=== PATIENT | male | born 1955 | race Caucasian/White ===

== ENCOUNTER → 2016-09-07 | Outpatient (REF) | payer BC | LOC: M LAB REF 12:33 | PROVIDERS: ATTEND Nurse Practitioner Adult Health | DX: E83.52 Hypercalcemia (principal) ==

== ENCOUNTER → 2016-12-07 | Outpatient (REF) | payer BC | LOC: M LAB REF 17:04 | PROVIDERS: ATTEND Nurse Practitioner Adult Health | DX: E83.52 Hypercalcemia (principal) ==

== ENCOUNTER → 2017-02-18 | Outpatient (CLI) | payer BC ==
--- NOTE | 2017-02-18 14:38 | REP ---
Clinical: Pain. Technique: AP, lateral, bilateral oblique views right foot. Findings: The osseous structures and joint spaces are intact and normal. There is no evidence for acute fracture or dislocation. Surrounding soft tissues are unremarkable. Vascular calcifications are appreciated. No subcutaneous emphysema or radiodense foreign body. Impression: Age appropriate right foot radiographs. Signed by Isaias Bustos MD 02/18/2017 02:30 P
== END ==
LOC: M RAD 14:14
PROVIDERS: ATTEND Nurse Practitioner Adult Health
DX: M79.671 Pain in right foot (principal)

== ENCOUNTER → 2017-03-30 | Outpatient (REF) | payer BC | LOC: M LAB REF 12:13 | PROVIDERS: ATTEND Nurse Practitioner Adult Health | DX: Z11.59 Encounter for screening for other viral diseases (principal) ==

== ENCOUNTER → 2017-06-10 | Outpatient (CLI) | payer BC ==
[~2017-06-10] MED LIST: PROHANCE 279.3MG/ML 15ML VIAL (A9576) As Ordered; PROHANCE 279.3MG/ML 5ML VIAL (A9576) As Ordered
== END ==
LOC: M RAD 10:16
DX: I70.213 Atherosclerosis of native arteries of extremities with intermittent claudication, bilateral legs (principal)
CPT/HCPCS: A9576

== ENCOUNTER → 2017-10-11 | Outpatient (CLI) | payer BC | LOC: M LAB 17:30 | DX: N50.811 Right testicular pain (principal) | CPT/HCPCS: 36415 ==

== ENCOUNTER → 2017-12-19 | Outpatient (CLI) | payer BC ==
[2017-12-19 10:21] LABS: CREATININE FOR GFR 1.09 MG/DL (0.70-1.30); GLOMERULAR FILTRATION RATE > 60.0 (>49)
[2017-12-19 10:21] LABS: BLOOD UREA NITROGEN 28 MG/DL (7-18)
== END ==
LOC: M LAB 09:28
DX: H90.A22 Sensorineural hearing loss, unilateral, left ear, with restricted hearing on the contralateral side (principal)
CPT/HCPCS: 82565

== ENCOUNTER → 2017-12-23 | Outpatient (CLI) | payer BC | LOC: M RAD 14:56 | DX: H90.A22 Sensorineural hearing loss, unilateral, left ear, with restricted hearing on the contralateral side (principal); G93.0 Cerebral cysts | CPT/HCPCS: A9576 ==

== ENCOUNTER → 2018-01-12 | Outpatient (REF) | payer BC ==
[2018-01-12 19:08] LABS: RHEUMATOID FACTOR QUANT < 10.0 IU/ML (<15.0)
[2018-01-15 00:06] LABS: ANTINUCLEAR ANTIBODIES DIRECT Negative (Negative); Lyme Disease IgG/IgM Antibodie <0.91 ISR (0.00-0.90); Lyme Disease IgM Ab Quantitati <0.80 index (0.00-0.79)
[2018-01-18 15:25] LABS: ACETYLCHOLINE RCPTOR BLOCK AB 13 % (0-25)
[2018-01-18 15:25] LABS: ACETYLCHOLINE RCPTOR BINDING A < 0.03 nmol/L (0.00-0.24)
== END ==
LOC: M LAB REF 17:36
DX: M79.1 Myalgia (principal)
CPT/HCPCS: 86038

== ENCOUNTER 2018-02-11 02:30 | Emergency (ER) | payer BC ==
[2018-02-11 03:06] LABS: BASO % 0.5 % (0.0-1.0); EOS # 0.1 10^3/uL (0.0-0.50); EOS % 2.3 % (0.0-3.0); HEMATOCRIT 34.6 % (42.0-52.0); HEMOGLOBIN 11.7 g/dl (13.5-17.5); IMMATURE GRANULOCYTE % 0.2 % (0-3.0); LYMPH # 1.7 10^3/uL (1.5-4.5); LYMPH % 30.2 % (24.0-44.0); MEAN CORPUSCULAR HEMOGLOBIN 29.2 pg (27.0-33.0); MEAN CORPUSCULAR HGB CONC 33.8 g/dl (32.0-36.5); MEAN CORPUSCULAR VOLUME 86.3 fl (80.0-96.0); MONO # 0.4 10^3/uL (0.0-0.8); MONO % 7.8 % (0.0-5.0); NEUTROPHILS # 3.3 10^3/uL (1.8-7.7); PLATELET COUNT, AUTOMATED 252 10^3/uL (150-450); RED BLOOD COUNT 4.01 10^6/uL (4.30-6.10); RED CELL DISTRIBUTION WIDTH 12.5 % (11.5-14.5); WHITE BLOOD COUNT 5.6 10^3/uL (4.0-10.0)
[2018-02-11 03:27] LABS: ANION GAP 10 MEQ/L (8-16); BLOOD UREA NITROGEN 22 MG/DL (7-18); CALCIUM LEVEL 9.1 MG/DL (8.8-10.2); CARBON DIOXIDE LEVEL 25 MEQ/L (21-32); CHLORIDE LEVEL 105 MEQ/L (98-107); CK-MB VALUE MASS 1.8 NG/ML (<3.6); CPK CREATINE PHOSPHOKINASE 50 U/L (39-308); CREATININE FOR GFR 1.14 MG/DL (0.70-1.30); GLOMERULAR FILTRATION RATE > 60.0 (>49); GLUCOSE, FASTING 362 MG/DL (70-100); POTASSIUM SERUM 4.6 MEQ/L (3.5-5.1); SODIUM LEVEL 140 MEQ/L (136-145); TROPONIN I < 0.02 NG/ML (< 0.10)
[2018-02-11] MEDS: ASPIRIN 81 MG CHEW TABLET PO (03:49)
[2018-02-11] MEDS: NITROGLYCERIN 0.4 MG SUBL TABLET SL ×2 (03:50→04:55)
[2018-02-11 04:38] LABS: ESTIMATED AVERAGE GLUCOSE 223 MG/DL (60-110); HEMOGLOBIN A1c 9.4 %
[2018-02-11] MEDS ORDERED: ISOVUE-370 76% 100ML VIAL (Q9967) As Ordered (05:11)
[2018-02-11] MEDS: GI COCKTAIL 50ML BTL(HYOSCYAMINE/MAALOX/LIDOCAINE VISCOUS)(1:3:1) PO (07:32)
[2018-02-11 09:54] LABS: ALBUMIN 3.9 GM/DL (3.2-5.2); ALBUMIN/GLOBULIN RATIO 1.26 (1.00-1.93); ALKALINE PHOSPHATASE 49 U/L (45-117); ALT/SGPT 21 U/L (12-78); AST/SGOT 18 U/L (7-37); BILIRUBIN,DIRECT < 0.1 MG/DL (0.0-0.2); BILIRUBIN,TOTAL 0.4 MG/DL (0.2-1.0); CK-MB VALUE MASS 1.5 NG/ML (<3.6); CPK CREATINE PHOSPHOKINASE 67 U/L (39-308); LIPASE 430 U/L (73-393); MB/CK RELATIVE INDEX 2.23 (< OR =4); TROPONIN I < 0.02 NG/ML (< 0.10)
== END 2018-02-11 10:50 | disposition home or self-care (01) ==
LOC: M ED 02:30
DX: R07.89 Other chest pain (principal); I45.10 Unspecified right bundle-branch block; I44.0 Atrioventricular block, first degree; K76.0 Fatty (change of) liver, not elsewhere classified; R91.1 Solitary pulmonary nodule; Z79.82 Long term (current) use of aspirin; Z79.4 Long term (current) use of insulin; Z79.899 Other long term (current) drug therapy
CPT/HCPCS: Q9967

== ENCOUNTER → 2018-02-27 | Outpatient (CLI) | payer BC | LOC: M RAD 07:57 | DX: K31.84 Gastroparesis (principal) | CPT/HCPCS: 78264 ==

== ENCOUNTER 2018-04-07 13:24 | Day surgery (SDC) | payer BC ==
[2018-04-07 14:33] LABS: BEDSIDE GLUCOSE 138 MG/DL (80-115)
[2018-04-07] MEDS: NS 1,000 ML IV (14:36)
[2018-04-07] MEDS ORDERED: PROPOFOL 200 MG/20 ML VIAL As Ordered (14:49)
[2018-04-07] MEDS ORDERED: LIDOCAINE 2% INJ 100 MG/5 ML SDV (FOR ANES.) As Ordered (15:20)
== END 2018-04-07 16:08 | disposition home or self-care (01) ==
LOC: M OPP 13:24
DX: K44.9 Diaphragmatic hernia without obstruction or gangrene (principal); R13.10 Dysphagia, unspecified; R10.13 Epigastric pain; K31.84 Gastroparesis; E10.8 Type 1 diabetes mellitus with unspecified complications; R01.1 Cardiac murmur, unspecified; I10 Essential (primary) hypertension; E78.00 Pure hypercholesterolemia, unspecified; M12.9 Arthropathy, unspecified; F41.9 Anxiety disorder, unspecified; Z79.4 Long term (current) use of insulin; Z79.82 Long term (current) use of aspirin; Z79.891 Long term (current) use of opiate analgesic; Z79.899 Other long term (current) drug therapy; J30.2 Other seasonal allergic rhinitis; Z90.89 Acquired absence of other organs
CPT/HCPCS: 43239

== ENCOUNTER → 2018-09-05 | Outpatient (CLI) | payer BC ==
[~2018-09-05] MED LIST changes: +ALPH600C PO; +ASPI81TA85 PO; +CALC-196 PO; +CIAL20TA PO; +CLAR10CA3 PO; +CLAR1TAB2 PO; +DICL100T6 PO; +E-Z-GAS II EFFERVESCENT PACKET (SODIUM BICARB./CITRIC ACID/SIMETHICONE) As Ordered ONE; +E-Z-HD 98% w/w 340GM SUSP BTL As Ordered ONE; +E-Z-PAQUE 96% w/w SUSP 176GM BTL As Ordered ONE; +GLYB5TA PO; +LEVE1INJ5 SC; +LISI10TA4 PO; +MECL-68 PO; +MECL-86 PO; +METF10004 PO; +MULTLIQ7 PO; +NEXI40CA PO; +NITR4TASL SL; +NU-M1TAB PO; +OMEP40CA2 PO; +PIOG1TAB37; +PREG50CA PO; -PROHANCE 279.3MG/ML 15ML VIAL (A9576) As Ordered; -PROHANCE 279.3MG/ML 5ML VIAL (A9576) As Ordered; +SERT-155 PO; +SIMV40TA2 PO; +TRAM50TA2 PO; +VICT18IN SC; +VITA10006 PO; +VITA500046 PO; +VITALIQ PO; +VITATAB11 PO; +VITMTA PO
--- NOTE | 2018-09-05 17:36 | REP ---
Esophagram The procedure was performed under the direct supervision of Dr. Campoverde. The images were reviewed with Dr. Campoverde. A single view PA chest x-ray is submitted as a press bucker film. The superior mediastinal structures are midline. The heart size is within normal limits. The lungs are clear. Liquid barium and gas producing granules were given in the erect position as well as liquid barium in the prone oblique positions in order to perform a double contrast esophagram examination. The oral and pharyngeal stages of deglutition are unremarkable. There are esophageal transport there are tertiary waves demonstrated. There is no esophagitis, stricture or mucosal ring. There is a sliding type hiatal hernia. There is gastroesophageal reflux demonstrated to below the level of the rasheed. Impression: 1. Tertiary waves. 2. There is a sliding type hiatal hernia. There is gastroesophageal reflux demonstrated to below the level of the rasheed. 0.8 minutes of fluoro time was utilized for this procedure. Reviewed by JOSE Fowler 09/05/2018 04:42 P Electronically Signed by Pedro Campoverde MD 09/05/2018 05:28 P
== END ==
LOC: M RAD 08:22
PROVIDERS: ATTEND Physician Assistant Medical
DX: R13.10 Dysphagia, unspecified (principal); K44.9 Diaphragmatic hernia without obstruction or gangrene; K21.9 Gastro-esophageal reflux disease without esophagitis

== ENCOUNTER 2018-09-14 08:01 | Day surgery (SDC) | payer BC ==
[~2018-09-14] VITALS: Ht 180.3 cm; Wt 100.9 kg
[~2018-09-14 08:01] MED LIST changes: -E-Z-GAS II EFFERVESCENT PACKET (SODIUM BICARB./CITRIC ACID/SIMETHICONE) As Ordered ONE; -E-Z-HD 98% w/w 340GM SUSP BTL As Ordered ONE; -E-Z-PAQUE 96% w/w SUSP 176GM BTL As Ordered ONE; +LIDOCAINE 2% INJ 100 MG/5 ML SDV (FOR ANES.) As Ordered ONE; +PROPOFOL 200 MG/20 ML VIAL As Ordered ONE
[2018-09-14] MEDS: NS 1,000 ML IV ONE (08:12)
--- NOTE | 2018-09-14 09:17 | ROOR ---
Patient Name: Eldon Caban Procedure Date: 09/14/2018 8:51 AM Date of : 1955 Age: 63 Room: [facility] Gender: Male Note Status: Finalized Procedure: Colonoscopy Indications: Screening patient at increased risk: Family history of 1st-degree relative with colorectal cancer at age 60 years (or older) Providers: mAol DUTTA MD Referring MD: Christie Pappas NP Requesting Provider: Medicines: Monitored Anesthesia Care Complications: No immediate complications. Procedure: Pre-Anesthesia Assessment: - The heart rate, respiratory rate, oxygen saturations, blood pressure, adequacy of pulmonary ventilation, and response to care were monitored throughout the procedure. The Colonoscope was introduced through the anus and advanced to the cecum, identified by appendiceal orifice and ileocecal valve. The colonoscopy was performed without difficulty. The patient tolerated the procedure well. The quality of the bowel preparation was good. Findings: The perianal and digital rectal examinations were normal. Three sessile polyps were found in the sigmoid colon. The polyps were diminutive in size. These polyps were removed with a cold snare. Resection and retrieval were complete. Mild sigmoid diverticulosis and small internal hemorrhoids. The exam was otherwise without abnormality on direct and retroflexion views. Impression: - Three diminutive polyps in the sigmoid colon, removed with a cold snare. Resected and retrieved. - Mild sigmoid diverticulosis and small internal hemorrhoids. - The examination was otherwise normal on direct and retroflexion views. Recommendation: - Repeat colonoscopy in 3 years for surveillance. - Return to referring physician as previously scheduled. Amol Dutta MD Amol DUTTA MD 09/14/2018 9:16:54 AM Electronically signed by Amol DUTTA MD Number of Addenda: 0 Note Initiated On: 09/14/2018 8:51 AM Estimated Blood Loss: Estimated blood loss: none.
[2018-09-14 09:36] VITALS: BP 187/80
== END 2018-09-14 09:42 | disposition home or self-care (01) ==
LOC: M OPP 08:01
PROVIDERS: ATTEND Internal Medicine Gastroenterology
DX: D12.5 Benign neoplasm of sigmoid colon (principal); K57.30 Diverticulosis of large intestine without perforation or abscess without bleeding; K64.8 Other hemorrhoids; Z12.11 Encounter for screening for malignant neoplasm of colon; Z80.0 Family history of malignant neoplasm of digestive organs

== ENCOUNTER → 2018-10-09 | Outpatient (CLI) | payer BC ==
[~2018-10-09] MED LIST changes: -LIDOCAINE 2% INJ 100 MG/5 ML SDV (FOR ANES.) As Ordered ONE; -PROPOFOL 200 MG/20 ML VIAL As Ordered ONE
[2018-10-09 15:57] LABS: BASO % 0.4 % (0.0-1.0); EOS # 0.1 10^3/uL (0.0-0.50); EOS % 0.9 % (0.0-3.0); HEMATOCRIT 37.1 % (42.0-52.0); HEMOGLOBIN 12.6 g/dl (13.5-17.5); LYMPH # 1.8 10^3/uL (1.5-4.5); MEAN CORPUSCULAR HEMOGLOBIN 29.4 pg (27.0-33.0); MEAN CORPUSCULAR VOLUME 86.5 fl (80.0-96.0); MONO # 0.5 10^3/uL (0.0-0.8); MONO % 6.4 % (0.0-5.0); NEUTROPHILS # 5.3 10^3/uL (1.8-7.7); PLATELET COUNT, AUTOMATED 205 10^3/uL (150-450); RED BLOOD COUNT 4.29 10^6/uL (4.30-6.10); WHITE BLOOD COUNT 7.7 10^3/uL (4.0-10.0)
[2018-10-09 16:15] LABS: HEMOGLOBIN A1c 9.8 %
[2018-10-09 16:21] LABS: ERYTHROCYTE SEDIMENTATION RATE 7 mm/hr (0-20)
[2018-10-09 16:34] LABS: ALBUMIN 4.5 GM/DL (3.2-5.2); ALT/SGPT 20 U/L (12-78); BILIRUBIN,TOTAL 0.5 MG/DL (0.2-1.0); BLOOD UREA NITROGEN 36 MG/DL (7-18); CALCIUM LEVEL 9.3 MG/DL (8.8-10.2); CARBON DIOXIDE LEVEL 27 MEQ/L (21-32); CHLORIDE LEVEL 103 MEQ/L (98-107); CREATININE FOR GFR 1.93 MG/DL (0.70-1.30); GLOMERULAR FILTRATION RATE 37.4 (>49); GLUCOSE, FASTING 200 MG/DL (70-100); POTASSIUM SERUM 4.8 MEQ/L (3.5-5.1); RHEUMATOID FACTOR QUANT < 10.0 IU/ML (<15.0); SODIUM LEVEL 139 MEQ/L (136-145)
[2018-10-09 16:35] LABS: FOLATE > 24.0 NG/ML (>5.4); VITAMIN B12 LEVEL > 2000 PG/ML (247-911)
[2018-10-10 10:58] LABS: ALBUMIN 4.68 GM/DL (3.29-5.55); ALBUMIN % 66.8 % (55.8-66.1); ALPHA-1-GLOBULIN % 3.7 % (2.9-4.9); ALPHA-1-GLOBULINS 0.26 GM/DL (0.17-0.41); BETA-1-GLOBULINS % 7.2 % (4.7-7.2); BETA-2-GLOBULINS 0.29 GM/DL (0.19-0.55); BETA-2-GLOBULINS % 4.1 % (3.2-6.5); GAMMA GLOBULIN % 8.2 % (11.1-18.8); GAMMA GLOBULINS 0.57 GM/DL (0.65-1.58)
[2018-10-13 00:06] LABS: ANCA-ATYPICAL <1:20 titer (Neg:<1:20); ANTINUCLEAR ANTIBODIES DIRECT Negative (Negative); CYTOPLASMIC NEUTROP AB ANCA-C <1:20 titer (Neg:<1:20); PERINUCLEAR AB ANCA-P <1:20 titer (Neg:<1:20); SJOGREN'S ANTI SS-A <0.2 AI (0.0-0.9); SJOGREN'S ANTI SS-B <0.2 AI (0.0-0.9)
== END ==
LOC: M LAB 14:57
PROVIDERS: ATTEND Psychiatry & Neurology Neurology
DX: R51 Headache (principal); R41.82 Altered mental status, unspecified; R42 Dizziness and giddiness

== ENCOUNTER → 2019-06-27 | Outpatient (CLI) | payer BC ==
[~2019-06-27] MED LIST changes: -MECL-68 PO; +MECL1TAB31 PO; -OMEP40CA2 PO; +OMEP40CA97 PO; -SERT-155 PO; +SERT50TA29 PO; -SIMV40TA2 PO; +SIMV40TA20 PO
--- NOTE | 2019-06-28 01:04 | REP ---
Clinical: Flank pain. Technique: Single supine view of the abdomen and pelvis. Findings: No obvious organomegaly. Phleboliths and vascular calcifications noted in the pelvis. No definite urinary tract calcification identified. Bowel gas pattern is nonspecific. Skeletal structures demonstrate age-related degenerative changes. Impression: Nonspecific examination. No definite urinary tract calcifications. Electronically Signed by Isaias Bustos MD 06/28/2019 12:55 A
== END ==
LOC: M RAD 14:57
PROVIDERS: ATTEND Urology
DX: R10.9 Unspecified abdominal pain (principal)

== ENCOUNTER → 2019-06-27 | Outpatient (REF) | payer BC ==
[2019-06-27 17:00] LABS: APPEARANCE, URINE HAZY (CLEAR); BACTERIA, URINE AUTO 1+ (NEGATIVE); BILIRUBIN, URINE AUTO NEGATIVE (NEGATIVE); BLOOD, URINE BLOOD NEGATIVE (NEGATIVE); COLOR, URINE AMBER (YELLOW); GLUCOSE, URINE (UA) AUTO 3+ mg/dL (NEGATIVE); KETONE, URINE AUTO TRACE mg/dL (NEGATIVE); LEUKOCYTE ESTERASE, URINE AUTO NEGATIVE (NEGATIVE); MUCUS, URINE SMALL (NEGATIVE); NITRITE, URINE AUTO NEGATIVE (NEGATIVE); PROTEIN, URINE AUTO 3+ mg/dL (NEGATIVE); RBC, URINE AUTO 2 /HPF (0-3); SPECIFIC GRAVITY URINE AUTO 1.025 (1.002-1.035); SQUAMOUS EPITHELIAL CELL UR AU 0 /HPF (0-6); UROBILINOGEN, URINE AUTO 0.2 mg/dL (0.0-2.0); WBC, URINE AUTO 2 /HPF (0-3)
== END ==
LOC: M SMT 16:31
PROVIDERS: ATTEND Urology
DX: R10.9 Unspecified abdominal pain (principal)

== ENCOUNTER → 2019-06-28 | Outpatient (CLI) | payer BC ==
--- NOTE | 2019-06-29 04:15 | REP ---
Clinical: Left flank pain. Technique: Axial noncontrast images from the lung bases to the pubic symphysis with coronal and sagittal re-formations. Comparison: 02/17/2018. Findings: Kidneys demonstrate mild symmetric and likely chronic perinephric stranding without hydroureteronephrosis or nephroureterolithiasis. 2.1 cm right renal hypodensity consistent with cyst is unchanged. Mild hepatomegaly and fatty infiltration to the liver suggested. Spleen, pancreas, gallbladder, and bilateral adrenal glands are normal for noncontrast evaluation. The enteric system is without obstruction or acute inflammatory process. Normal terminal ileum and appendix identified in the right lower quadrant. Pelvis demonstrates normal bladder and age appropriate prostate/seminal vesicles. Small fat containing inguinal hernias (right greater than left) noted. No ascites. No free air. No adenopathy. Abdominal aorta without aneurysm. Osseous structures demonstrate age-related degenerative changes without focal abnormality. Impression: 1. 2.1 cm right renal hypodensity compatible with cyst remains stable. No further acute urinary tract pathology appreciated. 2. Scattered diverticula without acute diverticulitis. 3. Mild hepatomegaly and hepatic steatosis. Electronically Signed by Isaias Bustos MD 06/29/2019 04:06 A
== END ==
LOC: M RAD 15:15
PROVIDERS: ATTEND Nurse Practitioner Family
DX: R10.9 Unspecified abdominal pain (principal); K76.0 Fatty (change of) liver, not elsewhere classified; R16.0 Hepatomegaly, not elsewhere classified

== ENCOUNTER 2019-07-13 20:07 | Emergency (ER) | payer BC ==
[~2019-07-13] VITALS: Ht 180.3 cm; Wt 104.5 kg
[2019-07-13 23:27] LABS: BASO % 0.4 % (0.0-1.0); EOS # 0.2 10^3/uL (0.0-0.5); EOS % 1.9 % (0.0-3.0); HEMOGLOBIN 12.5 g/dl (13.5-17.5); LYMPH # 2.5 10^3/uL (1.5-5.0); LYMPH % 32.2 % (24.0-44.0); MEAN CORPUSCULAR HEMOGLOBIN 27.9 pg (27.0-33.0); MEAN CORPUSCULAR HGB CONC 32.9 g/dl (32.0-36.5); MEAN CORPUSCULAR VOLUME 84.8 fl (80.0-96.0); MONO # 0.6 10^3/uL (0.0-0.8); MONO % 7.1 % (0.0-5.0); NEUTROPHILS # 4.6 10^3/uL (1.5-8.5); NEUTROPHILS % 58.1 % (36.0-66.0); PLATELET COUNT, AUTOMATED 261 10^3/uL (150-450); RED BLOOD COUNT 4.48 10^6/uL (4.30-6.10); WHITE BLOOD COUNT 7.9 10^3/uL (4.0-10.0)
[2019-07-13 23:57] LABS: BLOOD UREA NITROGEN 22 MG/DL (7-18); CALCIUM LEVEL 9.1 MG/DL (8.8-10.2); CARBON DIOXIDE LEVEL 26 MEQ/L (21-32); CHLORIDE LEVEL 110 MEQ/L (98-107); CREATININE FOR GFR 1.01 MG/DL (0.70-1.30); GLOMERULAR FILTRATION RATE > 60.0 (>49); GLUCOSE, FASTING 135 MG/DL (70-100); POTASSIUM SERUM 4.3 MEQ/L (3.5-5.1); SODIUM LEVEL 143 MEQ/L (136-145)
[2019-07-14] MEDS: GASTROGRAFIN SOLUTION 30ML PO SCH ×2 (00:45→01:18)
--- NOTE | 2019-07-14 03:05 | REPVR ---
PROCEDURE INFORMATION: Exam: CT Abdomen And Pelvis With Contrast Exam date and time: 07/14/2019 12:15 AM Age: 64 years old Clinical indication: Abdominal pain; Generalized; Additional info: Diverticulitis TECHNIQUE: Imaging protocol: Computed tomography of the abdomen and pelvis with intravenous contrast. Radiation optimization: All CT scans at this facility use at least one of these dose optimization techniques: automated exposure control; mA and/or kV adjustment per patient size (includes targeted exams where dose is matched to clinical indication); or iterative reconstruction. Contrast material: ISO; Contrast volume: 100 ml; Contrast route: AC; Other contrast: Route: Oral, Material: ggraphin, Volume: 600; COMPARISON: CT ABD PELVIS W/O CONTRAST 06/28/2019 3:35 PM FINDINGS: Liver: There is hepatomegaly and hepatic steatosis. 9 mm flush filling nodule in the left lobe adjacent to the falciform ligament, likely a small hemangioma. Gallbladder and bile ducts: Normal. No calcified stones. No ductal dilation. Pancreas: Normal. No ductal dilation. Spleen: Mild splenomegaly. Adrenals: Normal. No mass. Kidneys and ureters: Small cyst in the right kidney. Kidneys are otherwise unremarkable. No hydronephrosis. Stomach and bowel: There is mild colonic diverticulosis without evidence of diverticulitis. The small bowel is unremarkable. Appendix: No evidence of appendicitis. Intraperitoneal space: Unremarkable. No free air. No significant fluid collection. Vasculature: Unremarkable. No abdominal aortic aneurysm. Lymph nodes: Unremarkable. No enlarged lymph nodes. Bladder: Unremarkable as visualized. Reproductive: Unremarkable as visualized. Bones/joints: There are advanced degenerative changes in the spine and pelvis. Soft tissues: Unremarkable. IMPRESSION: 1. Hepatic steatosis and mild hepatomegaly. Mild splenomegaly. 2. Colonic diverticulosis without evidence of diverticulitis. 3. No acute findings. Electronically signed by: Giuliano Gutierres On 07/14/2019 03:06:39 AM
[2019-07-14] MEDS ORDERED: REGL5TAB2 PO (03:13)
[2019-07-14 03:15] VITALS: BP 140/67
== END 2019-07-14 03:28 | disposition home or self-care (01) ==
LOC: M ED 20:07
DX: K31.84 Gastroparesis (principal); E11.9 Type 2 diabetes mellitus without complications; R16.2 Hepatomegaly with splenomegaly, not elsewhere classified; K76.0 Fatty (change of) liver, not elsewhere classified; K57.30 Diverticulosis of large intestine without perforation or abscess without bleeding; I10 Essential (primary) hypertension; E78.5 Hyperlipidemia, unspecified; K21.9 Gastro-esophageal reflux disease without esophagitis; F41.9 Anxiety disorder, unspecified; Z79.02 Long term (current) use of antithrombotics/antiplatelets; Z79.4 Long term (current) use of insulin; Z79.891 Long term (current) use of opiate analgesic; Z79.899 Other long term (current) drug therapy
CPT/HCPCS: 36415; 74177; 80048; 85025; 99284; Q9963

== ENCOUNTER → 2019-07-31 | Outpatient (CLI) | payer BC ==
[~2019-07-31] MED LIST changes: +REGL5TAB2 PO
== END ==
LOC: M LAB 10:07
PROVIDERS: ATTEND Nurse Practitioner Family
DX: Z12.5 Encounter for screening for malignant neoplasm of prostate (principal)
CPT/HCPCS: 36415; G0103

== ENCOUNTER → 2019-11-06 | Outpatient (REF) | payer BC ==
[2019-11-06 20:11] LABS: MAU/CREAT RATIO 280.1 MCG/MG (0.0-30.0)
== END ==
LOC: M LAB REF 15:01
PROVIDERS: ATTEND Nurse Practitioner Family
DX: E11.65 Type 2 diabetes mellitus with hyperglycemia (principal)

== ENCOUNTER → 2020-05-19 | Outpatient (CLI) | payer SELFPAY ==
[~2020-05-19] MED LIST changes: -ASPI81TA85 PO; +ASPI81TA86 PO
== END ==
LOC: M LABSMTC 14:02
PROVIDERS: ATTEND Pediatrics
DX: Z20.828 Contact with and (suspected) exposure to other viral communicable diseases (principal)

== ENCOUNTER → 2021-06-09 | Outpatient (REF) | payer BC ==
[~2021-06-09] MED LIST changes: -GLYB5TA PO; +GLYB5TAB6 PO; +LISI10TA22 PO; -LISI10TA4 PO; +OMEP40CA4 PO; -OMEP40CA97 PO
[2021-06-09 18:27] LABS: MAU/CREAT RATIO 828.1 MCG/MG (0.0-30.0)
== END ==
LOC: M LAB REF 16:55
PROVIDERS: ATTEND Nurse Practitioner Family
DX: E11.65 Type 2 diabetes mellitus with hyperglycemia (principal)

== ENCOUNTER → 2021-08-26 | Outpatient (CLI) | payer BC | LOC: M LAB 11:31 | PROVIDERS: ATTEND Urology | DX: R97.20 Elevated prostate specific antigen [PSA] (principal) ==

== ENCOUNTER 2021-11-25 09:43 | Emergency (ER) | payer BC ==
[~2021-11-25] VITALS: Ht 180.3 cm; Wt 105.0 kg
[2021-11-25] MEDS ORDERED: AMOX875T (09:53)
[2021-11-25] MEDS ORDERED: HUMA50IN4 (09:53)
[2021-11-25 11:53] LABS: BASO % 0.4 % (0.0-1.0); EOS # 0.1 10^3/uL (0.0-0.5); EOS % 1.5 % (0.0-3.0); HEMATOCRIT 37.5 % (42.0-52.0); HEMOGLOBIN 12.3 g/dl (13.5-17.5); LYMPH # 2.3 10^3/uL (1.5-5.0); LYMPH % 30.7 % (24.0-44.0); MEAN CORPUSCULAR HEMOGLOBIN 28.1 pg (27.0-33.0); MEAN CORPUSCULAR HGB CONC 32.8 g/dl (32.0-36.5); MEAN CORPUSCULAR VOLUME 85.8 fl (80.0-96.0); MONO # 0.6 10^3/uL (0.0-0.8); MONO % 8.6 % (2.0-8.0); NEUTROPHILS # 4.4 10^3/uL (1.5-8.5); NEUTROPHILS % 58.7 % (36.0-66.0); PLATELET COUNT, AUTOMATED 255 10^3/uL (150-450); RED BLOOD COUNT 4.37 10^6/uL (4.30-6.10); WHITE BLOOD COUNT 7.4 10^3/uL (4.0-10.0)
[2021-11-25 12:05] LABS: INR 0.98; PROTHROMBIN TIME 13.4 SECONDS (12.7-14.5)
[2021-11-25 12:06] LABS: PARTIAL THROMBOPLASTIN TIME 28.6 SECONDS (25.9-37.0)
[2021-11-25 12:24] LABS: BLOOD UREA NITROGEN 22 MG/DL (7-18); CARBON DIOXIDE LEVEL 28 MEQ/L (21-32); CHLORIDE LEVEL 107 MEQ/L (98-107); CREATININE FOR GFR 1.25 MG/DL (0.70-1.30); GLOMERULAR FILTRATION RATE > 60.0 (>49); GLUCOSE, FASTING 62 MG/DL (70-100); SODIUM LEVEL 140 MEQ/L (136-145)
[2021-11-25] MEDS ORDERED: VALA1TAB5 PO (15:46)
[2021-11-25] MEDS ORDERED: PRED20TA PO (15:46)
[2021-11-25] MEDS ORDERED: BACIOIN23 OP (17:00)
[2021-11-25 17:07] VITALS: BP 158/68
== END 2021-11-25 17:32 | disposition home or self-care (01) ==
LOC: M ED 09:43
DX: G51.0 Bell's palsy (principal); I44.0 Atrioventricular block, first degree; I10 Essential (primary) hypertension; E78.5 Hyperlipidemia, unspecified; E11.9 Type 2 diabetes mellitus without complications; H81.4 Vertigo of central origin; Z79.4 Long term (current) use of insulin; Z79.811 Long term (current) use of aromatase inhibitors

== ENCOUNTER → 2022-02-02 | Outpatient (REF) | payer BC ==
[~2022-02-02] MED LIST changes: +AMOX875T; +BACIOIN23 OP; +HUMA50IN4; +PRED20TA PO; +VALA1TAB5 PO
== END ==
LOC: M LAB REF 16:09
PROVIDERS: ATTEND Nurse Practitioner Adult Health
DX: G51.0 Bell's palsy (principal)

== ENCOUNTER → 2022-04-08 | Outpatient (CLI) | payer BC | LOC: M WUC 10:53 | PROVIDERS: ATTEND Nurse Practitioner Adult Health | DX: R05.9 Cough, unspecified (principal) ==

== ENCOUNTER → 2022-06-01 | Outpatient (CLI) | payer BC | LOC: M RAD 11:06 | PROVIDERS: ATTEND Orthopaedic Surgery | DX: M54.50 Low back pain, unspecified (principal) ==

== ENCOUNTER → 2022-06-30 | Outpatient (CLI) | payer BC | LOC: M RAD 11:55 | PROVIDERS: ATTEND Internal Medicine | DX: N50.811 Right testicular pain (principal) ==

== ENCOUNTER 2022-07-07 20:27 | Inpatient (IN) | payer BC, MEDICARE ==
[~2022-07-07] VITALS: Ht 180.3 cm; Wt 129.9 kg
[2022-07-07] MEDS ORDERED: VIT1CAPS22 PO (20:48)
[2022-07-07] MEDS ORDERED: MECL-109 PO (20:48)
[2022-07-07] MEDS ORDERED: RA N1TAB PO (20:48)
[2022-07-07] MEDS ORDERED: BACTDSTA PO (20:48)
[2022-07-07 22:51] LABS: BASO # 0.1 10^3/uL (0.0-0.2); BASO % 0.5 % (0.0-1.0); EOS # 0.1 10^3/uL (0.0-0.5); EOS % 1.1 % (0.0-3.0); HEMOGLOBIN 12.7 g/dl (13.5-17.5); LYMPH # 2.4 10^3/uL (1.5-5.0); LYMPH % 25.2 % (24.0-44.0); MEAN CORPUSCULAR HEMOGLOBIN 28.1 pg (27.0-33.0); MEAN CORPUSCULAR HGB CONC 32.6 g/dl (32.0-36.5); MEAN CORPUSCULAR VOLUME 86.3 fl (80.0-96.0); MONO # 0.6 10^3/uL (0.0-0.8); MONO % 6.7 % (2.0-8.0); NEUTROPHILS # 6.2 10^3/uL (1.5-8.5); NEUTROPHILS % 66.3 % (36.0-66.0); PLATELET COUNT, AUTOMATED 305 10^3/uL (150-450); RED BLOOD COUNT 4.52 10^6/uL (4.30-6.10); WHITE BLOOD COUNT 9.4 10^3/uL (4.0-10.0)
[2022-07-07 23:02] LABS: INR 0.97; PROTHROMBIN TIME 13.1 SECONDS (12.5-14.5)
[2022-07-07 23:09] LABS: ALBUMIN 4.2 G/DL (3.2-5.2); BILIRUBIN,DIRECT 0.1 MG/DL (<0.4); BILIRUBIN,TOTAL 0.4 MG/DL (0.3-1.2); CALCIUM LEVEL 9.7 MG/DL (8.3-10.6); CREATININE FOR GFR 2.27 MG/DL (0.70-1.30); GLOMERULAR FILTRATION RATE 30.6 (>49); POTASSIUM SERUM 5.1 MMOL/L (3.5-5.1); TOTAL PROTEIN 6.8 G/DL (5.7-8.2)
[2022-07-07] MEDS ORDERED: MORPHINE 4 MG/ML 1ML VIAL IV ONE (23:40)
[2022-07-07] MEDS ORDERED: ONDANSETRON 4MG 2ML VIAL IV ONE (23:40)
[2022-07-07] MEDS ORDERED: NS 1,000 ML IV ONE (23:40)
[2022-07-08] MEDS ORDERED: ISOVUE-370 76% 100ML VIAL As Ordered ONE (00:01)
[2022-07-08] MEDS ORDERED: NS 1,000 ML IV ONE (02:05)
[2022-07-08 04:43] LABS: RSV AMPLIFICATION NEGATIVE (NEGATIVE)
[2022-07-08] MEDS ORDERED: MORPHINE 2 MG/ML 1ML VIAL IV ONE (04:45)
[2022-07-08] MEDS ORDERED: DEXTROSE 50% 50ML SYRINGE IV PRN (05:00)
[2022-07-08] MEDS ORDERED: GLUCAGON INJ 1MG VIAL SC PRN (05:00)
[2022-07-08] MEDS ORDERED: NS 1,000 ML IV SCH (05:00)
[2022-07-08] MEDS ORDERED: GLUCOSE 4GM CHEW TABLET PO PRN (05:00)
[2022-07-08] MEDS ORDERED: ACETAMINOPHEN TAB 650MG DOSE (2X325MG) PO PRN (05:00)
[2022-07-08] MEDS ORDERED: ONDANSETRON 4MG 2ML VIAL IV PRN (05:10)
[2022-07-08] MEDS: HEPARIN SOD (PORCINE) 5000UNITS/ML 1ML VIAL/SYRINGE SC SCH ×3 (05:35→21:16)
[2022-07-08] MEDS ORDERED: OCUVTAB4 PO (06:18)
[2022-07-08] MEDS ORDERED: LORA-930 PO (06:18)
[2022-07-08] MEDS ORDERED: ASCO500T PO (06:18)
[2022-07-08] MEDS ORDERED: VITATAB73 PO (06:18)
[2022-07-08] MEDS ORDERED: CAL-TAB2 PO (06:18)
[2022-07-08] MEDS ORDERED: BACT800T5 PO (06:18)
[2022-07-08] MEDS ORDERED: MAGN400T35 PO (06:18)
[2022-07-08] MEDS ORDERED: VITA500038 PO (06:18)
[2022-07-08] MEDS ORDERED: NITR4TASL SL (06:18)
[2022-07-08] MEDS ORDERED: MECL-86 PO (06:18)
[2022-07-08] MEDS ORDERED: HUMA50IN4 SC ×3 (06:18)
[2022-07-08] MEDS ORDERED: HOME MED LIST COMPLETE! XX SCH (06:20)
[2022-07-08] MEDS: INSULIN LISPRO (NovoLOG) PER UNIT SC SCH ×3 (07:30→18:24)
[2022-07-08 09:55] LABS: MAGNESIUM LEVEL 1.7 MG/DL (1.8-2.4)
[2022-07-08] MEDS ORDERED: MAG SULF 1GM/100ML (MAG RUN) 1 GM in IV 1 EA IV ONE (11:00)
[2022-07-08 11:13] LABS: CALCIUM LEVEL 8.4 MG/DL (8.3-10.6); CREATININE FOR GFR 2.03 MG/DL (0.70-1.30); GLOMERULAR FILTRATION RATE 34.8 (>49); PHOSPHORUS LEVEL 3.3 MG/DL (2.4-5.1); POTASSIUM SERUM 4.8 MMOL/L (3.5-5.1)
[2022-07-08 11:28] LABS: HEMOGLOBIN A1c 8.3 % (4.0-6.0)
[2022-07-08] MEDS ORDERED: LORATADINE 10 MG TAB PO PRN (12:40)
[2022-07-08 12:42] LABS: APPEARANCE, URINE MANUAL CLEAR (CLEAR); BILIRUBIN, URINE MANUAL NEGATIVE (NEGATIVE); BLOOD URINE MANUAL NEGATIVE (NEGATIVE); COLOR, URINE MANUAL YELLOW (YELLOW); GLUCOSE, URINE (UA) MANUAL 2+(250 MG/DL) mg/dL (NEGATIVE); KETONE, URINE MANUAL 1+ mg/dL (NEGATIVE); LEUKOCYTE ESTERASE, URINE MAN NEGATIVE (NEGATIVE); NITRITE, URINE MANUAL NEGATIVE (NEGATIVE); PROTEIN, URINE MANUAL 1+ mg/dL (NEGATIVE); SPECIFIC GRAVITY,URINE MANUAL 1.015 (1.002-1.035); UROBILINOGEN, URINE MANUAL NORMAL (NORMAL)
[2022-07-08 13:00] LABS: BACTERIA, URINE SMALL AMOUNT; HYALINE CAST, URINE NONE SEEN /lpf (0-1); MUCUS, URINE SMALL AMOUNT (NEGATIVE); RBC, URINE 0-1 /hpf (0-3); SQUAMOUS EPITHELIAL CELL URINE SMALL AMOUNT /hpf (SMALL AMT); WBC, URINE 0-1 /hpf (0-3)
[2022-07-08 13:09] LABS: CREATININE,RANDOM URINE 81.4 MG/DL
[2022-07-08] MEDS: OMEPRAZOLE 20MG CAP PO SCH ×2 (13:11→21:16)
[2022-07-08] MEDS: MECLIZINE 25 MG TABLET PO SCH (13:11)
[2022-07-08] MEDS: ASCORBIC ACID 500 MG TAB PO SCH (13:18)
[2022-07-08] MEDS: MAGNESIUM OXIDE 400MG TAB (MAG-OX) PO SCH (13:19)
[2022-07-08] MEDS ORDERED: INSULIN LISPRO (NovoLOG) PER UNIT SC SCH (21:00)
[2022-07-08] MEDS ORDERED: SERTRALINE HCL 50 MG TAB PO SCH (21:00)
[2022-07-08] MEDS ORDERED: LEVEMIR (INSULIN DETEMIR) 1 UNITS/0.01ML SC SCH (21:00)
[2022-07-08] MEDS ORDERED: SIMVASTATIN 40 MG TAB PO SCH (21:00)
[2022-07-09] MEDS: HEPARIN SOD (PORCINE) 5000UNITS/ML 1ML VIAL/SYRINGE SC SCH ×2 (05:24→13:42)
[2022-07-09 05:48] LABS: HEMOGLOBIN 10.8 g/dl (13.5-17.5); MEAN CORPUSCULAR HEMOGLOBIN 28.4 pg (27.0-33.0); MEAN CORPUSCULAR HGB CONC 32.7 g/dl (32.0-36.5); MEAN CORPUSCULAR VOLUME 86.8 fl (80.0-96.0); PLATELET COUNT, AUTOMATED 236 10^3/uL (150-450); WHITE BLOOD COUNT 5.4 10^3/uL (4.0-10.0)
[2022-07-09 06:07] LABS: MAGNESIUM LEVEL 1.9 MG/DL (1.8-2.4)
[2022-07-09 06:09] LABS: CALCIUM LEVEL 9.5 MG/DL (8.3-10.6); CREATININE FOR GFR 1.63 MG/DL (0.70-1.30); GLOMERULAR FILTRATION RATE 44.9 (>49)
[2022-07-09 06:36] VITALS: BP 146/90
[2022-07-09] MEDS ORDERED: PREVNAR-20 VACCINE 0.5ML SYRINGE IM.IMMUN ONE (09:00)
[2022-07-09] MEDS: ASCORBIC ACID 500 MG TAB PO SCH (09:36)
[2022-07-09] MEDS: OMEPRAZOLE 20MG CAP PO SCH (09:37)
[2022-07-09] MEDS: MAGNESIUM OXIDE 400MG TAB (MAG-OX) PO SCH (09:37)
[2022-07-09] MEDS: MECLIZINE 25 MG TABLET PO SCH (09:37)
[2022-07-09] MEDS: INSULIN LISPRO (NovoLOG) PER UNIT SC SCH ×2 (09:38→13:42)
[2022-07-09 09:42] VITALS: BP 137/79
[2022-07-09] MEDS ORDERED: AMLO25TA PO (10:48)
[2022-07-09] MEDS ORDERED: AMLO1TAB25 PO (11:43)
[2022-07-09] MEDS ORDERED: REGL5TAB2 PO (11:48)
[2022-07-09 14:00] VITALS: BP 167/81
[2022-07-09] MEDS ORDERED: LEVEMIR (INSULIN DETEMIR) 1 UNITS/0.01ML SC SCH (21:00)
== END 2022-07-09 17:45 | disposition home or self-care (01) | DRG 469 ==
LOC: M ED 20:27 → M ED INP 07-08 05:31 → M MS5PR 07-08 20:55
PROVIDERS: ADMIT Family Medicine; ATTEND Family Medicine
DX: N17.9 Acute kidney failure, unspecified (principal); E11.22 Type 2 diabetes mellitus with diabetic chronic kidney disease; E11.42 Type 2 diabetes mellitus with diabetic polyneuropathy; E87.5 Hyperkalemia; K21.9 Gastro-esophageal reflux disease without esophagitis; I12.9 Hypertensive chronic kidney disease with stage 1 through stage 4 chronic kidney disease, or unspecified chronic kidney disease; E78.5 Hyperlipidemia, unspecified; F32.A Depression, unspecified; N50.82 Scrotal pain; F41.9 Anxiety disorder, unspecified; Z20.822 Contact with and (suspected) exposure to COVID-19; Z90.49 Acquired absence of other specified parts of digestive tract; Z79.4 Long term (current) use of insulin; Z79.84 Long term (current) use of oral hypoglycemic drugs; Z79.899 Other long term (current) drug therapy; N18.30 Chronic kidney disease, stage 3 unspecified

== ENCOUNTER → 2022-08-30 | Outpatient (CLI) | payer BC, MEDICARE ==
[~2022-08-30] MED LIST changes: +AMLO1TAB25 PO; +AMLO25TA PO; +ASCO500T PO; +BACT800T5 PO; +BACTDSTA PO; +CAL-TAB2 PO; +HUMA50IN4 SC; +INSU100I6 SC; -LEVE1INJ5 SC; +LORA-930 PO; +MAGN400T35 PO; +MECL-109 PO; +OCUVTAB4 PO; +RA N1TAB PO; +VIT1CAPS22 PO; +VITA500038 PO; +VITATAB73 PO
== END ==
LOC: M LAB 11:34
PROVIDERS: ATTEND Urology
DX: R97.20 Elevated prostate specific antigen [PSA] (principal)

== ENCOUNTER → 2022-09-20 | Outpatient (CLI) | payer BC, MEDICARE ==
[2022-09-20 13:52] LABS: HEMOGLOBIN A1c 7.9 % (4.0-6.0)
== END ==
LOC: M PLALAB 11:58
PROVIDERS: ATTEND Nurse Practitioner Family
DX: E11.65 Type 2 diabetes mellitus with hyperglycemia (principal)

== ENCOUNTER → 2022-09-20 | Outpatient (REF) | payer BC, MEDICARE ==
[2022-09-20 18:20] LABS: CREATININE, URINE 48.4 MG/DL
== END ==
LOC: M LAB REF 17:05
PROVIDERS: ATTEND Nurse Practitioner Family
DX: E11.65 Type 2 diabetes mellitus with hyperglycemia (principal)

== ENCOUNTER → 2023-10-13 | Outpatient (CLI) | payer BC, MEDICARE ==
[~2023-10-13] MED LIST changes: -MECL-109 PO; +MECL-209 PO; -MECL1TAB31 PO; +[UNRECOGNIZED DRUG - CODE] PO
== END ==
LOC: M LAB 11:15
PROVIDERS: ATTEND Urology
DX: Z12.5 Encounter for screening for malignant neoplasm of prostate (principal)
CPT/HCPCS: 36415; G0103

== ENCOUNTER → 2023-11-11 | Outpatient (REF) | payer BC, MEDICARE ==
[2023-11-11 18:37] LABS: PERCENT SATURATION 14.8 % (19.7-50.0)
[2023-11-11 18:41] LABS: FERRITIN 9.8 NG/ML (10.5-307.3)
[2023-11-15 09:08] LABS: LDL DIRECT 66 mg/dL (0-99)
== END ==
LOC: M LAB REF 17:00
PROVIDERS: ATTEND Internal Medicine
DX: D50.9 Iron deficiency anemia, unspecified (principal); E78.5 Hyperlipidemia, unspecified

== ENCOUNTER → 2023-11-18 | Outpatient (CLI) | payer BC, MEDICARE | LOC: M RAD 13:36 | PROVIDERS: ATTEND Internal Medicine | DX: M54.59 Other low back pain (principal) ==

== ENCOUNTER → 2023-12-22 | Outpatient (CLI) | payer BC, MEDICARE | LOC: M RAD 11:44 | PROVIDERS: ATTEND Internal Medicine | DX: I73.9 Peripheral vascular disease, unspecified (principal) ==

== ENCOUNTER 2024-03-22 07:59 | Day surgery (SDC) | payer BC, MEDICARE ==
[~2024-03-22] VITALS: Ht 180.3 cm; Wt 103.6 kg
[~2024-03-22 07:59] MED LIST changes: +ECOT81TA5 PO; +GNP45TAB2 PO; +INSU100I48 SQ; +JARD1TAB3 PO; +LISI40TA4 PO; +NS 250 ML IV ONE; +OMEP40CA5 PO; +THERTAB52 PO
[2024-03-22] MEDS ORDERED: GLUCOSE 4 GM CHEW PO PRN (08:20)
[2024-03-22] MEDS ORDERED: GLUCAGON INJ 1MG VIAL SC PRN (08:20)
[2024-03-22] MEDS ORDERED: DEXTROSE 50% 50ML SYRINGE IV PRN (08:20)
[2024-03-22] MEDS: INSULIN LISPRO (NovoLOG) PER UNIT SC PRN (08:28)
[2024-03-22 10:45] VITALS: TEMP 98.8
[2024-03-22 11:06] VITALS: BP 135/63; O2SAT 93
== END 2024-03-22 11:05 | disposition home or self-care (01) ==
LOC: M OPP 07:59
PROVIDERS: ATTEND Internal Medicine Gastroenterology
DX: Z12.11 Encounter for screening for malignant neoplasm of colon (principal); D12.2 Benign neoplasm of ascending colon; K51.40 Inflammatory polyps of colon without complications; K57.30 Diverticulosis of large intestine without perforation or abscess without bleeding; K64.8 Other hemorrhoids; Z86.0100 Personal history of colon polyps, unspecified; Z87.19 Personal history of other diseases of the digestive system; E11.40 Type 2 diabetes mellitus with diabetic neuropathy, unspecified; I10 Essential (primary) hypertension; E78.00 Pure hypercholesterolemia, unspecified; Z79.899 Other long term (current) drug therapy; Z79.82 Long term (current) use of aspirin; Z79.4 Long term (current) use of insulin; Z79.84 Long term (current) use of oral hypoglycemic drugs; Z90.89 Acquired absence of other organs; Z80.0 Family history of malignant neoplasm of digestive organs
CPT/HCPCS: 45385; 88305; J1815

== ENCOUNTER 2024-07-31 15:37 | Emergency (ER) | payer BC, MEDICARE ==
[~2024-07-31] VITALS: Ht 180.3 cm; Wt 106.0 kg
[~2024-07-31 15:37] MED LIST changes: -NS 250 ML IV ONE
[2024-07-31 17:11] LABS: BASO % 0.3 % (0.0-1.0); HEMATOCRIT 46.1 % (42.0-52.0); LYMPH % 6.6 % (24.0-44.0); MEAN CORPUSCULAR HEMOGLOBIN 28.6 pg (27.0-33.0); MEAN CORPUSCULAR HGB CONC 32.5 g/dl (32.0-36.5); MONO # 0.8 10^3/uL (0.0-0.8); MONO % 5.5 % (2.0-8.0); NEUTROPHILS # 13.2 10^3/uL (1.5-8.5); NEUTROPHILS % 87.1 % (36.0-66.0); RED BLOOD COUNT 5.24 10^6/uL (4.30-6.10); WHITE BLOOD COUNT 15.2 10^3/uL (4.0-10.0)
[2024-07-31 17:34] LABS: ALBUMIN 4.6 G/DL (3.2-5.2); BILIRUBIN,DIRECT 0.3 MG/DL (<0.4); BILIRUBIN,TOTAL 1.1 MG/DL (0.3-1.2); CALCIUM LEVEL 10.1 MG/DL (8.3-10.6); CREATININE FOR GFR 1.31 MG/DL (0.70-1.30); GLOMERULAR FILTRATION RATE 57.4 (>42); POTASSIUM SERUM 4.3 MMOL/L (3.5-5.1); TOTAL PROTEIN 7.8 G/DL (5.7-8.2)
[2024-07-31 20:28] VITALS: BP 191/104; TEMP 97.6; O2SAT 95
== END 2024-07-31 21:57 | disposition left against medical advice (07) ==
LOC: M ED 15:37
DX: Z53.21 Procedure and treatment not carried out due to patient leaving prior to being seen by health care provider (principal)

== ENCOUNTER → 2025-02-08 | Outpatient (CLI) | payer MEDICARE ==
[~2025-02-08] MED LIST changes: -ALPH600C PO; +ALPH600C2 PO; +LISI40TA10 PO; -LISI40TA4 PO; -PREG50CA PO; +PREG50CA87 PO
[2025-02-08 13:25] LABS: PLATELET COUNT, AUTOMATED 242 10^3/uL (150-450)
[2025-02-08 13:28] LABS: APPEARANCE, URINE CLEAR (CLEAR); BACTERIA, URINE AUTO NEGATIVE (NEGATIVE); BILIRUBIN, URINE AUTO NEGATIVE (NEGATIVE); BLOOD, URINE BLOOD NEGATIVE (NEGATIVE); GLUCOSE, URINE (UA) AUTO 3+ mg/dL (NEGATIVE); KETONE, URINE AUTO NEGATIVE (NEGATIVE); LEUKOCYTE ESTERASE, URINE AUTO NEGATIVE (NEGATIVE); MUCUS, URINE SMALL (NEGATIVE); NITRITE, URINE AUTO NEGATIVE (NEGATIVE); PROTEIN, URINE AUTO 2+ mg/dL (NEGATIVE); RBC, URINE AUTO 0 /HPF (0-3); SPECIFIC GRAVITY URINE AUTO 1.016 (1.002-1.035); SQUAMOUS EPITHELIAL CELL UR AU 0 /HPF (0-6); UROBILINOGEN, URINE AUTO 0.2 mg/dL (0.0-2.0); WBC, URINE AUTO 0 /HPF (0-3)
[2025-02-08 14:02] LABS: CALCIUM LEVEL 10.0 MG/DL (8.3-10.6); CARBON DIOXIDE LEVEL 28.0 MMOL/L (20-31); CHLORIDE LEVEL 106.0 MMOL/L (98-107); CREATININE FOR GFR 1.52 MG/DL (0.70-1.30); GLOMERULAR FILTRATION RATE 48.7 (>42); POTASSIUM SERUM 4.4 MMOL/L (3.5-5.1); SODIUM LEVEL 143.0 MMOL/L (136-145)
== END ==
LOC: M RAD 12:32
PROVIDERS: ATTEND Urology
DX: Z01.818 Encounter for other preprocedural examination (principal); N39.0 Urinary tract infection, site not specified; N40.0 Benign prostatic hyperplasia without lower urinary tract symptoms

== ENCOUNTER 2025-02-18 11:28 | Day surgery (SDC) | payer MEDICARE ==
[~2025-02-18] VITALS: Ht 154.9 cm; Wt 103.4 kg
[2025-02-18] MEDS: LR 1,000 ML IV SCH (12:15)
[2025-02-18] MEDS ORDERED: GLUCOSE 4 GM CHEW PO PRN (12:35)
[2025-02-18] MEDS ORDERED: DEXTROSE 50% 50 ML SYRINGE IV PRN (12:35)
[2025-02-18] MEDS ORDERED: GLUCAGON INJ 1 MG VIAL SC PRN (12:35)
[2025-02-18] MEDS: INSULIN LISPRO (NovoLOG) PER UNIT SC PRN (12:45)
[2025-02-18] MEDS ORDERED: LIDOCAINE 2% 100 MG/5 ML SDV (FOR ANES.) As Ordered ONE (15:15)
[2025-02-18] MEDS ORDERED: dexAMETHasone 4 MG/ML 1 ML VIAL As Ordered ONE (15:15)
[2025-02-18] MEDS ORDERED: ONDANSETRON 4MG 2ML VIAL As Ordered ONE (15:15)
[2025-02-18] MEDS ORDERED: MIDAZOLAM INJ 2 MG/2 ML VIAL As Ordered ONE (15:15)
[2025-02-18] MEDS ORDERED: ACETAMINOPHEN 1000MG/100ML IV BAG As Ordered ONE (15:45)
[2025-02-18] MEDS: ceFAZolin SOD 2 GM IV ONCE IV ONE (15:59)
[2025-02-18] MEDS ORDERED: HYDROmorphone HCL 2 MG/ML 1 ML VIAL As Ordered ONE (16:18)
[2025-02-18] MEDS ORDERED: FUROSEMIDE 100 MG/10 ML VIAL As Ordered ONE (16:30)
[2025-02-18] MEDS ORDERED: LR 1,000 ML IV SCH (16:50)
[2025-02-18] MEDS ORDERED: HYDROMORPHONE HCL 0.5 MG/0.5 ML SYRINGE IV PRN (16:50)
[2025-02-18] MEDS ORDERED: ONDANSETRON 4MG 2ML VIAL IV PRN (16:50)
[2025-02-18] MEDS ORDERED: CIPR-249 PO (17:10)
[2025-02-18 19:13] VITALS: BP 168/87; TEMP 97.7; O2SAT 99
== END 2025-02-18 19:16 | disposition home or self-care (01) ==
LOC: M SDC 11:28
PROVIDERS: ATTEND Urology
DX: N40.1 Benign prostatic hyperplasia with lower urinary tract symptoms (principal); R39.14 Feeling of incomplete bladder emptying; E11.40 Type 2 diabetes mellitus with diabetic neuropathy, unspecified; I10 Essential (primary) hypertension; E78.00 Pure hypercholesterolemia, unspecified; K21.9 Gastro-esophageal reflux disease without esophagitis; Z79.899 Other long term (current) drug therapy; Z79.84 Long term (current) use of oral hypoglycemic drugs; Z79.4 Long term (current) use of insulin; Z79.82 Long term (current) use of aspirin
CPT/HCPCS: 52601; J0131; J0690; J1171; J1815; J1938; J2250; J2405; J3010

== ENCOUNTER → 2025-04-02 | Outpatient (REF) | payer MEDICARE ==
[~2025-04-02] MED LIST changes: +CIPR-249 PO
[2025-04-04 07:20] LABS: LDL DIRECT 58 mg/dL (<100)
== END ==
LOC: M LAB REF 17:14
PROVIDERS: ATTEND Internal Medicine
DX: E78.5 Hyperlipidemia, unspecified (principal)

== ENCOUNTER → 2025-04-23 | Outpatient (REF) | payer MEDICARE ==
[2025-04-23 18:37] LABS: APPEARANCE, URINE CLOUDY (CLEAR); BACTERIA, URINE AUTO NEGATIVE (NEGATIVE); BILIRUBIN, URINE AUTO NEGATIVE (NEGATIVE); BLOOD, URINE BLOOD NEGATIVE (NEGATIVE); GLUCOSE, URINE (UA) AUTO 3+ mg/dL (NEGATIVE); KETONE, URINE AUTO TRACE mg/dL (NEGATIVE); LEUKOCYTE ESTERASE, URINE AUTO 2+ (NEGATIVE); NITRITE, URINE AUTO NEGATIVE (NEGATIVE); PROTEIN, URINE AUTO 2+ mg/dL (NEGATIVE); RBC, URINE AUTO 7 /HPF (0-3); SPECIFIC GRAVITY URINE AUTO 1.023 (1.002-1.035); SQUAMOUS EPITHELIAL CELL UR AU 0 /HPF (0-6); UROBILINOGEN, URINE AUTO 0.2 mg/dL (0.0-2.0); WBC, URINE AUTO TNTC /HPF (0-3)
== END ==
LOC: M SMT 17:03
PROVIDERS: ATTEND Urology
DX: R33.9 Retention of urine, unspecified (principal)

== ENCOUNTER → 2025-05-24 | Outpatient (REF) | payer MEDICARE ==
[~2025-05-24] MED LIST changes: -BACTDSTA PO; +SULF-8 PO
[2025-05-24 17:34] LABS: APPEARANCE, URINE CLOUDY (CLEAR); BACTERIA, URINE AUTO 1+ (NEGATIVE); BILIRUBIN, URINE AUTO NEGATIVE (NEGATIVE); BLOOD, URINE BLOOD 2+ (NEGATIVE); GLUCOSE, URINE (UA) AUTO 3+ mg/dL (NEGATIVE); KETONE, URINE AUTO NEGATIVE (NEGATIVE); LEUKOCYTE ESTERASE, URINE AUTO 3+ (NEGATIVE); MUCUS, URINE SMALL (NEGATIVE); NITRITE, URINE AUTO NEGATIVE (NEGATIVE); PROTEIN, URINE AUTO 2+ mg/dL (NEGATIVE); RBC, URINE AUTO 40 /HPF (0-3); SPECIFIC GRAVITY URINE AUTO 1.011 (1.002-1.035); SQUAMOUS EPITHELIAL CELL UR AU 0 /HPF (0-6); UROBILINOGEN, URINE AUTO 0.2 mg/dL (0.0-2.0); WBC, URINE AUTO TNTC /HPF (0-3)
== END ==
LOC: M SMT 16:53
PROVIDERS: ATTEND Urology
DX: R33.9 Retention of urine, unspecified (principal)